=== PATIENT | male | born 1995 | race Caucasian/White ===

== ENCOUNTER 2018-06-16 19:10 | Emergency (ER) | payer MEDICAID ==
[~2018-06-16] VITALS: Ht 188 cm; Wt 108.4 kg
[2018-06-16 19:17] VITALS: Ht 188 cm; Wt 108.4 kg
[2018-06-16] MEDS ORDERED: ZOLOFT25 MG (19:18)
[2018-06-16 20:09] LABS: BASOPHILS 0.1 % (0-2); EOSINOPHILS 0.6 % (0-7); HEMATOCRIT 50.9 % (42.0-54.0); HEMOGLOBIN 17.5 g/dL (13.5-17.5); IMMATURE GRANULOCYTES 0.3 % (0-5); LYMPHOCYTES 25.5 % (15-50); MCH 29.5 pg (26.0-34.0); MCHC 34.4 g/dL (31.0-37.0); MCV 85.7 fL (80.0-100.0); MEAN PLATELET VOLUME 10.5 fL (7.4-10.4); MONOCYTES 8.6 % (2-11); NEUTROPHILS 64.9 % (40-80); PLATELET COUNT 302 10x3/uL (130-400); RBC 5.94 10x6/uL (4.20-6.10); RDW 12.8 % (11.5-14.5)
[2018-06-16 20:27] LABS: ALBUMIN 3.8 g/dL (3.4-5.0); ALKALINE PHOSPHATASE 98 U/L (46-116); ALT (SGPT) 26 U/L (10-68); BILIRUBIN - TOTAL 0.31 mg/dL (0.2-1.3); CALC OSMOLALITY 279 mosm/kg (275-300); CALCIUM 9.3 mg/dL (8.5-10.1); CHLORIDE - SERUM 102 mmol/L (98-107); GLUCOSE 100 mg/dL (74-106); POTASSIUM - SERUM 4.1 mmol/L (3.5-5.1); PROTEIN - SERUM 8.2 g/dL (6.4-8.2); SODIUM 141 mmol/L (136-145); UREA NITROGEN 9 mg/dL (7-18); eGFR NON AFRICAN AMERICAN > 90 mL/min (90-120)
[2018-06-16 20:37] LABS: CKMB 0.7 U/L (0.0-3.6); CREATINE KINASE 95 UL (21-232)
[2018-06-16 20:38] LABS: TROPONIN-I < 0.017 ng/mL (0.000-0.060)
[2018-06-16 21:32] VITALS: BP 123/78
== END 2018-06-16 21:33 | disposition home or self-care (01) ==
LOC: D.ER 19:10
PROVIDERS: Family Medicine
DX: R07.89 Other chest pain (principal); R06.02 Shortness of breath; I25.10 Atherosclerotic heart disease of native coronary artery without angina pectoris; F17.200 Nicotine dependence, unspecified, uncomplicated